=== PATIENT | female | born 1965 | race Caucasian/White ===

== ENCOUNTER 2016-12-20 13:02 | Observation (INO) | payer OTHER ==
[2016-12-20] VITALS (7 sets, daily range): BP systolic 120–141; BP diastolic 66–88; PULSE 64–72; RESP 16–18; TEMP 97–97.9; O2SAT 95–98
[~2016-12-20 13:02] MED LIST: OXYC-360 PO; Z.0.NO CURRENT MEDS
--- NOTE | 2016-12-20 13:18 | PD ---
HPI Chief Complaint: Chest Pain Time Seen by Provider: 13:18 Travel History International Travel<30 days: No Contact w/Intl Traveler<30days: No History of Present Illness HPI 51-year-old female presents to the ED via private car for evaluation of sudden onset 6/10 left-sided back pain, radiating to the left chest, accompanied by shortness of breath, diaphoresis. Onset 1.5 hours ago while sitting at work, at rest. Described as stabbing at onset, now described as constant pressure on presentation. Patient denies palpitations, nausea, vomiting. States she is otherwise been feeling well. Denies chronic health problems, takes no daily medications. Patient endorses 30+ year history of cigarette smoking, strong family history of TX. PFSH Past Medical History Cancer: No Diabetes: No Glaucoma: No Hepatitis: No Hiatal Hernia: No Hypertension: No Thyroid Disease: No Past Surgical History Gynecologic Surgery: Yes (TUBAL LIGATION, LEFT BREAST CYST) Pacemaker: No Social History Alcohol Use: No Tobacco Use: Yes (/ PK) Allergies-Medications (Allergen,Severity, Reaction): Coded Allergies: No Known Allergies (Verified , 12/20/16) Reported Meds & Prescriptions Reported Meds & Active Scripts Active No Active Prescriptions or Reported Medications Review of Systems Except as stated in HPI: all other systems reviewed are Neg Physical Exam Narrative GENERAL: Well-nourished, well-developed, obese white female in no acute distress. SKIN: Warm and dry. HEAD: Normocephalic. EYES: No scleral icterus. No injection or drainage. NECK: Supple, trachea midline. No JVD or lymphadenopathy. CARDIOVASCULAR: Regular rate and rhythm without murmurs, gallops, or rubs. 2+ DP and radial pulses bilaterally. RESPIRATORY: Breath sounds clear and equal bilaterally. No accessory muscle use. GASTROINTESTINAL: Abdomen soft, non-tender, nondistended. Active bowel sounds. MUSCULOSKELETAL: No cyanosis, or edema. BACK: No obvious deformity. No CVA tenderness. Tender to palpation over the left shoulder blade. Data Data Last Documented VS Vital Signs Date Time Temp Pulse Resp B/P Pulse Ox O2 Delivery O2 Flow Rate FiO2 12/20/16 13:49 98 12/20/16 13:15 97.0 72 16 141/88 Orders Electrocardiogram (12/20/16 ) Ckmb (Isoenzyme) Profile (12/20/16 13:25) Complete Blood Count With Diff (12/20/16 13:25) Comprehensive Metabolic Panel (12/20/16 13:25) Magnesium (Mg) (12/20/16 13:25) Prothrombin Time / Inr (Pt) (12/20/16 13:25) Act Partial Throm Time (Ptt) (12/20/16 13:25) Troponin I (12/20/16 13:25) Lipase (12/20/16 13:25) Chest, Single Ap (12/20/16 13:25) Ecg Monitoring (12/20/16 13:25) Bilateral Bp Monitoring (12/20/16 13:25) Iv Access Insert/Monitor (12/20/16:25) Oximetry (12/20/16 13:25) Aspirin Chew (Aspirin Chew) (12/20/16 13:30) Sodium Chloride 0.9% Flush (Ns Flush) (12/20/16 13:30) CKMB (12/20/16 13:36) CKMB% (12/20/16 13:36) Labs Laboratory Tests Test 12/20/16 13:36 White Blood Count 9.1 TH/MM3 Red Blood Count 4.67 MIL/MM3 Hemoglobin 14.6 GM/DL Hematocrit 42.7 % Mean Corpuscular Volume 91.3 FL Mean Corpuscular Hemoglobin 31.2 PG Mean Corpuscular Hemoglobin 34.2 % Concent Red Cell Distribution Width 13.6 % Platelet Count 207 TH/MM3 Mean Platelet Volume 8.1 FL Neutrophils (%) (Auto) 60.4 % Lymphocytes (%) (Auto) 29.5 % Monocytes (%) (Auto) 7.6 % Eosinophils (%) (Auto) 1.8 % Basophils (%) (Auto) 0.7 % Neutrophils # (Auto) 5.5 TH/MM3 Lymphocytes # (Auto) 2.7 TH/MM3 Monocytes # (Auto) 0.7 TH/MM3 Eosinophils # (Auto) 0.2 TH/MM3 Basophils # (Auto) 0.1 TH/MM3 CBC Comment DIFF FINAL Differential Comment Prothrombin Time 10.7 SEC Prothromb Time International 1.0 RATIO Ratio Activated Partial 27.8 SEC Thromboplast Time Sodium Level 140 MEQ/L Potassium Level 4.1 MEQ/L Chloride Level 108 MEQ/L Carbon Dioxide Level 24.0 MEQ/L Anion Gap 8 MEQ/L Blood Urea Nitrogen 11 MG/DL Creatinine 0.98 MG/DL Estimat Glomerular Filtration 60 ML/MIN Rate Random Glucose 79 MG/DL Calcium Level 8.9 MG/DL Magnesium Level 2.1 MG/DL Total Bilirubin 0.3 MG/DL Aspartate Amino Transf 27 U/L (AST/SGOT) Alanine Aminotransferase 34 U/L (ALT/SGPT) Alkaline Phosphatase 48 U/L Total Creatine Kinase 702 U/L Creatine Kinase MB 6.3 NG/ML Creatine Kinase MB % 0.9 % Troponin I LESS THAN 0.02 NG/ML Total Protein 7.4 GM/DL Albumin 3.9 GM/DL Lipase 98 U/L [facility] Medical Decision Making Medical Screen Exam Complete: Yes Emergency Medical Condition: Yes Interpretation(s) EKG rate 66, sinus rhythm. SD interval 136, QRS 80, QTC 390. Normal axis. No ischemic changes. Reviewed by Dr. Arauz. Differential Diagnosis Atypical chest pain versus ACS versus pancreatitis versus cholecystitis versus other Narrative Course 51-year-old female presents to the ED via private car for evaluation of sudden onset 6/10 left-sided back pain, radiating to the left chest, accompanied by shortness of breath, diaphoresis. Onset 1.5 hours ago while sitting at work, at rest. Described as stabbing at onset, now described as constant pressure on presentation. Patient denies palpitations, nausea, vomiting. Endorses 30+ year history of cigarette smoking, strong family history of TX. Vitals reviewed. Physical exam reveals an obese white female in no acute distress. There is tenderness to palpation over the left scapula but the physical exam is otherwise unremarkable. Patient was administered aspirin, pain rated 3/5 on recheck. CBC: The CBC 9.1. Hemoglobin 14.6. INR 1.0 CMP: No concerning abnormalities Lipase 98 Chest x-ray no acute disease per radiology read. First set cardiac enzymes negative. EKG as above. I discussed the results of the workup with the patient. I recommended observation in the chest pain center for serial cardiac enzymes and EKGs. The patient is amenable to this plan of care. Please see chest pain center notes for disposition. Diagnosis Primary Impression: Chest pain Qualified Code: R07.9 - Chest pain, unspecified type Scripts No Active Prescriptions or Reported Meds Alana Field Dec 20, 2016 13:18
[2016-12-20] MEDS ORDERED: ASPIRIN 81 MG CHEW TAB PO ONE (13:30)
[2016-12-20] MEDS ORDERED: SODIUM CHLORIDE 0.9% FLUSH 5 ML FLUSH IVF PRN ×2 (13:30→15:00)
[2016-12-20 13:51] LABS: AUTOMATED NEUTROPHIL # 5.5 TH/MM3 (1.8-7.7); BASOPHIL # 0.1 TH/MM3 (0-0.2); BASOPHIL % 0.7 % (0.0-2.0); EOSINOPHIL # 0.2 TH/MM3 (0-0.4); EOSINOPHIL % 1.8 % (0.0-4.0); HEMATOCRIT 42.7 % (35.0-46.0); HEMO FLAGS DIFF FINAL; LYMPH % 29.5 % (9.0-44.0); LYMPHOCYTE # 2.7 TH/MM3 (1.0-4.8); MEAN CELL VOLUME 91.3 FL (80.0-100.0); MEAN CORPUSCULAR HEMOGLOBIN 31.2 PG (27.0-34.0); MEAN CORPUSCULAR HGB CONC 34.2 % (32.0-36.0); MONO % 7.6 % (0.0-8.0); NEUT % 60.4 % (16.0-70.0); PLATELET COUNT 207 TH/MM3 (150-450); RED BLOOD COUNT 4.67 MIL/MM3 (4.00-5.30); RED CELL DISTRIBUTION WIDTH 13.6 % (11.6-17.2); WHITE BLOOD COUNT 9.1 TH/MM3 (4.0-11.0)
--- NOTE | 2016-12-20 14:03 | RADRPT ---
EXAM DATE/TIME: 12/20/2016 13:35 [facility] COMPARISON: No previous studies available for comparison. INDICATIONS : Chest pain MEDICAL HISTORY : None. SURGICAL HISTORY : None. ENCOUNTER: Initial ACUITY: 1 day PAIN SCORE: 8/10 LOCATION: Bilateral chest FINDINGS: A single view of the chest demonstrates the lungs to be symmetrically aerated without evidence of mas s, infiltrate or effusion. The cardiomediastinal contours are unremarkable. Osseous structures are intact. CONCLUSION: No acute disease. Alek Bailey MD FACR on December 20, 2016 at 14:02 Board Certified Radiologist. This report was verified electronically.
[2016-12-20 14:04] LABS: ALT (GPT) 34 U/L (10-53); ANION GAP 8 MEQ/L (5-15); AST (GOT) 27 U/L (15-37); BLOOD UREA NITROGEN 11 MG/DL (7-18); CHLORIDE 108 MEQ/L (98-107); GLOMERULAR FILTRATION RATE 60 ML/MIN (>89); MAGNESIUM 2.1 MG/DL (1.5-2.5); POTASSIUM 4.1 MEQ/L (3.5-5.1); SODIUM (NA) 140 MEQ/L (136-145)
[2016-12-20 14:08] LABS: ALKALINE PHOSPHATASE 48 U/L (45-117); CREATINE KINASE 702 U/L (26-192); TOTAL BILIRUBIN ADULT 0.3 MG/DL (0.2-1.0)
[2016-12-20 14:14] LABS: APTT (PATIENT) 27.8 SEC (24.3-30.1); PROTHROMBIN TIME - PATIENT 10.7 SEC (9.8-11.6)
[2016-12-20 14:20] LABS: CKMB 6.3 NG/ML (0.5-3.6)
[2016-12-20] MEDS ORDERED: ACETAMINOPHEN/HYDROcodone 325 MG/7.5 MG TAB PO PRN (15:00)
[2016-12-20] MEDS ORDERED: ACETAMINOPHEN 500 MG CPLT PO PRN (15:00)
[2016-12-20] MEDS ORDERED: ALPRAZolam 0.25 MG TAB PO PRN (15:00)
[2016-12-20] MEDS ORDERED: ONDANSETRON HCL 4 MG/2 ML VIAL IV PRN (15:00)
--- NOTE | 2016-12-20 15:19 | HHI.HP ---
[facility] Primary Care Physician Debbie Mayorga DO Chief Complaint Chest pain History of Present Illness This is a 50-year-old female that presents to the ED via private vehicle complaining of chest pain. She describes developing a discomfort while workup around 11:00 this morning. She was sitting down at the time. Initially was a stabbing discomfort from the left side her back that radiated anteriorly into her left chest. That lasted 1 hour and then it turned into a pressure in the left lateral chest wall. The discomfort is still there but not as bad. Initially the discomfort was a 9 out of 10 but currently the discomfort is about a 2 out of 10. She had shortness of breath initially. Denies inspirational chest discomfort. No nausea but had some diaphoresis initially. She denies having discomfort like this in the past. She cannot recall prior stress testing. She states she has strong family history of heart disease. She states that her discomfort is worsened with certain positional changes. Denies recent travel. Denies recent illness. Review of Systems General: Patient denies fevers, chills recent, and recent travel HEENT: Patient denies headache, sore throat, difficulty swallowing. Cardiovascular: Describes a chest discomfort as mentioned above. There was diaphoresis. Denies sensation of heart beating rapidly or irregularly. No syncope. Respiratory: There was shortness of breath initially. Denies inspiration or chest discomfort. Denies coughing wheezing or hemoptysis. GI: Patient denies nausea, vomiting, diarrhea, abdominal pain, bloody stools. Musculoskeletal: Patient denies joint pain or edema. Denies calf pain or edema. Neurovascular: Patient denies numbness, tingling, weakness in extremities. Denies headache. Endocrine: Denies polyuria and polydipsia. Hematologic: Denies easy bruising. Skin: Denies rash or itching. Past Family Social History Allergies: Coded Allergies: No Known Allergies (Verified , 12/20/16) Past Medical History Denies hypertension, hyperlipidemia, diabetes, and CAD. Past Surgical History Cyst removed from left breast. Tubal ligation. Reported Medications Denies. Active Ordered Medications Current Medications Medications (Trade) Dose Ordered Sig/Jean-Paul Route Start Time Stop Time Status Last Admin (Tylenol) 500 mg Q4H PRN PO 12/20/16 15:00 UNV ([place] 7.5-325 Mg) 1 tab Q4H PRN PO 12/20/16 15:00 UNV (Zofran Inj) 4 mg Q6H PRN IV 12/20/16 15:00 UNV (Protonix) 40 mg DAILY PO 12/20/16 15:00 UNV (Aspirin) 325 mg DAILY PO 12/21/16 09:00 UNV (Xanax) 0.25 mg Q8H PRN PO 12/20/16 15:00 UNV Family History Family history is positive for coronary artery disease. Her father at age 52 with congestive heart failure. Her brother at age 46 of an arrhythmia, patient is really not sure of CAD. The patient's mother had a coronary artery bypass graft at age 75. Social History Patient has smoked one third pack of cigarettes daily for 35 years. She denies alcohol or illicit drugs. She is . She works in banking. Physical Exam Vital Signs Vital Signs Date Time Temp Pulse Resp B/P Pulse Ox O2 Delivery O2 Flow Rate FiO2 12/20/16 13:49 98 12/20/16 13:15 97.0 72 16 141/88 96 Physical Exam GENERAL: This is a well-nourished, well-developed patient, in no apparent distress. Patient is obese at 110 kg. Patient speaks in clear complete sentences. Patient is pleasant. The patient's daughter is also at the bedside. HEENT: Head is atraumatic and normocephalic. Neck is supple without lymphadenopathy and trachea is midline. No JVD or carotid bruits. CARDIOVASCULAR: Regular rate and rhythm without murmurs, gallops, or rubs. RESPIRATORY: Clear to auscultation. Breath sounds equal bilaterally. No wheezes , rales, or rhonchi. Left lateral chest wall is tender as well as the left back which is the same discomfort that she has been having. No use of accessory muscles. GASTROINTESTINAL: Abdomen is nontender, nondistended. Abdomen soft. No obvious pulsatile mass or bruit. No CVA tenderness. Strong femoral pulses bilaterally. Normal bowel sounds in all quadrants. MUSCULOSKELETAL: Patient is moving upper and lower extremities freely. No calf tenderness or edema, no Homans sign. Strong pulses in upper and lower extremities. NEUROLOGICAL: Patient is alert and oriented. Cranial nerves 2-12 are grossly intact. No focal deficits and speech is clear. SKIN: No rash and turgor is normal. Laboratory Laboratory Tests Test 12/20/16 13:36 White Blood Count 9.1 Red Blood Count 4.67 Hemoglobin 14.6 Hematocrit 42.7 Mean Corpuscular Volume 91.3 Mean Corpuscular Hemoglobin 31.2 Mean Corpuscular Hemoglobin 34.2 Concent Red Cell Distribution Width 13.6 Platelet Count 207 Mean Platelet Volume 8.1 Neutrophils (%) (Auto) 60.4 Lymphocytes (%) (Auto) 29.5 Monocytes (%) (Auto) 7.6 Eosinophils (%) (Auto) 1.8 Basophils (%) (Auto) 0.7 Neutrophils # (Auto) 5.5 Lymphocytes # (Auto) 2.7 Monocytes # (Auto) 0.7 Eosinophils # (Auto) 0.2 Basophils # (Auto) 0.1 CBC Comment DIFF FINAL Differential Comment Prothrombin Time 10.7 Prothromb Time International 1.0 Ratio Activated Partial 27.8 Thromboplast Time Sodium Level 140 Potassium Level 4.1 Chloride Level 108 Carbon Dioxide Level 24.0 Anion Gap 8 Blood Urea Nitrogen 11 Creatinine 0.98 Estimat Glomerular Filtration 60 Rate Random Glucose 79 Calcium Level 8.9 Magnesium Level 2.1 Total Bilirubin 0.3 Aspartate Amino Transf 27 (AST/SGOT) Alanine Aminotransferase 34 (ALT/SGPT) Alkaline Phosphatase 48 Total Creatine Kinase 702 Creatine Kinase MB 6.3 Creatine Kinase MB % 0.9 Troponin I LESS THAN 0.02 Total Protein 7.4 Albumin 3.9 Lipase 98 Result Diagram: 12/20/16 1336 12/20/16 1336 Imaging Last Impressions Chest X-Ray 12/20/16 1325 Signed Impressions: Service Date/Time: Tuesday, December 20, 2016 13:35 - CONCLUSION: No acute disease. Alek Bailey MD FACR Course Initial EKG has sinus rhythm with nonspecific T-wave changes. No significant ST segment depressions or elevations. Assessment and Plan Assessment and Plan 1) Chest pain: Patient's discomfort is atypical. However she has multiple risk factors for CAD with tobacco abuse and family history. Patient will spend the evening in the chest pain center to further rule out. She will be seen by Dr. Soto in the morning. If she does rule out she will likely have a Randal protocol ETT. If her stress test were to be nonischemic she will likely be discharged home with instructions to follow-up with her primary care physician. We will try Toradol for chest wall discomfort. 2) Tobacco abuse: Patient has been counseled on the importance of smoking cessation. Ahmet Morel Dec 20, 2016 15:19
[2016-12-20] MEDS ORDERED: SODIUM CHLORID 0.9% 500 ML INJ 500 ML IV SCH (15:30)
[2016-12-20 17:00] LABS: CREATINE KINASE 68 U/L (26-192)
[2016-12-20] MEDS: PANTOPRAZOLE SOD 40 MG DELAYED RELEASE TAB PO SCH (17:13)
[2016-12-20 20:28] LABS: CREATINE KINASE 66 U/L (26-192)
[2016-12-20] MEDS ORDERED: SODIUM CHLORIDE 0.9% FLUSH 5 ML FLUSH IVF SCH (21:00)
[2016-12-21] VITALS (7 sets, daily range): BP systolic 126–139; BP diastolic 73–88; PULSE 54–84; RESP 18–20; TEMP 97.9–98.2; O2SAT 97–99
[2016-12-21] MEDS ORDERED: ASPIRIN 325 MG TAB PO SCH (09:00)
[2016-12-21] MEDS: PANTOPRAZOLE SOD 40 MG DELAYED RELEASE TAB PO SCH (09:19)
--- NOTE | 2016-12-21 10:40 | HHI.DCPOC ---
Discharge Care Plan Diagnosis: (1) Atypical chest pain (2) Tobacco abuse Goals to Promote Your Health * To prevent worsening of your condition and complications * To maintain your health at the optimal level Directions to Meet Your Goals Take your medications as prescribed Follow your dietary instruction Follow activity as directed Keep your appointments as scheduled Take your immunizations and boosters as scheduled If your symptoms worsen call your PCP, if no PCP go to Urgent Care Center or Emergency Room Smoking is Dangerous to Your Health. Avoid second hand smoke Call the 24-hour hour crisis hotline for domestic abuse at Kayleigh Villaseñor Dec 21, 2016 10:40
--- NOTE | 2016-12-21 16:54 | TR ---
Date Performed: 12/21/2016 Time Performed: 10:01:53 DOCTOR: Sussy Soto DRUG LIST: CLINICAL HISTORY: REASON FOR TEST: REASON FOR ENDING: OBSERVATION: CONCLUSION: Randal protocol completed. Stopped sec to reaching target heart rate and leg fatigue. Maximum BH=220 Target HR Achieved=92.0% Maximum FL=247/66 Total Exercise Time=6:18. No reprod chest discomfort. No st segment changes to sugg ischemia. No ectopy. Good exercise tolerance. Normal bp res ponse. Recovery quick and unremarkable. COMMENTS:
--- NOTE | 2016-12-21 16:57 | EKG ---
Date Performed: 12/20/2016 Time Performed: 19:43:30 PTAGE: 51 years EKG: Sinus rhythm NORMAL ECG Since PREVIOUS TRACING , no significant change noted PREVIOUS TRACIN12/20/2016 16.57 DOCTOR: Sussy Soto Interpretating Date/Time 12/21/2016 16:57:00
--- NOTE | 2016-12-21 16:58 | EKG ---
Date Performed: 12/20/2016 Time Performed: 16:57:11 PTAGE: 51 years EKG: SINUS BRADYCARDIA BORDERLINE ECG Since PREVIOUS TRACING , no significant change noted PREVIOUS TRACIN12/20/2016 13.13 DOCTOR: Sussy Soto Interpretating Date/Time 12/21/2016 16:58:10
--- NOTE | 2016-12-21 17:00 | EKG ---
Date Performed: 12/20/2016 Time Performed: 13:13:53 PTAGE: 51 years EKG: Sinus rhythm NORMAL ECG NO PREVIOUS TRACING DOCTOR: Sussy Soot Interpretating Date/Time 12/21/2016 16:58:56
== END 2016-12-21 11:30 | disposition home or self-care (01) ==
LOC: NEPE 13:02 → NEDA 14:31 → NEPHCDU 16:35
PROVIDERS: ADMIT Internal Medicine Cardiovascular Disease; ATTEND Internal Medicine Cardiovascular Disease
DX: R07.89 Other chest pain (principal); R06.02 Shortness of breath; R61 Generalized hyperhidrosis; F17.210 Nicotine dependence, cigarettes, uncomplicated; E66.9 Obesity, unspecified; Z71.6 Tobacco abuse counseling; Z82.49 Family history of ischemic heart disease and other diseases of the circulatory system
CPT/HCPCS: 71010; 80053; 82550; 82552; 83690; 83735; 84484; 85025; 85610; 85730; 93005; 93017; 99285; G0378